=== PATIENT | female | born 1940 | race Caucasian/White ===

== ENCOUNTER 2022-04-07 11:53 | Outpatient (CLI) | payer MEDICARE, BC | END 2022-04-07 11:54 | disposition home or self-care (01) | LOC: CSHCT 11:53 | PROVIDERS: ATTEND Family Medicine | DX: R91.1 Solitary pulmonary nodule (principal); R91.8 Other nonspecific abnormal finding of lung field; J98.11 Atelectasis | CPT/HCPCS: 71260 ==

== ENCOUNTER 2022-04-24 10:37 | Outpatient (CLI) | payer MEDICARE, BC | END 2022-04-24 10:38 | disposition home or self-care (01) | LOC: CSHMAMMO 10:37 | PROVIDERS: ATTEND Family Medicine | DX: Z12.31 Encounter for screening mammogram for malignant neoplasm of breast (principal); Z91.89 Other specified personal risk factors, not elsewhere classified | CPT/HCPCS: 77063; 77067 ==

== ENCOUNTER 2024-09-18 08:51 | Outpatient (CLI) | payer MEDICARE, BC | END 2024-09-18 08:52 | disposition home or self-care (01) | LOC: CSHCT 08:51 | PROVIDERS: ATTEND Internal Medicine | DX: C34.91 Malignant neoplasm of unspecified part of right bronchus or lung (principal) | CPT/HCPCS: 71260; 74177; 82565 ==

== ENCOUNTER 2024-10-03 13:23 | Outpatient (CLI) | payer MEDICARE, BC | END 2024-10-03 13:24 | disposition home or self-care (01) | LOC: CSHULT 13:23 | PROVIDERS: ATTEND Internal Medicine | DX: C34.91 Malignant neoplasm of unspecified part of right bronchus or lung (principal); Z79.899 Other long term (current) drug therapy | CPT/HCPCS: 93306 ==

== ENCOUNTER 2025-07-25 08:41 | Outpatient (CLI) | payer MEDICARE, BC ==
[2025-07-25] MEDS ORDERED: Iopamidol 300 61% 100 ML VIAL FS ONE (08:52)
[2025-07-25 10:38] LABS: Estimated GFR - POC 89.0
== END 2025-07-25 08:42 | disposition home or self-care (01) ==
LOC: CSHCT 08:41
PROVIDERS: ATTEND Internal Medicine
DX: C34.91 Malignant neoplasm of unspecified part of right bronchus or lung (principal)
CPT/HCPCS: 71260; 74177; 82565